=== PATIENT | female | born 1935 | race Caucasian/White ===

== ENCOUNTER 2018-12-23 10:51 | Inpatient (IN) ==
--- NOTE | 2018-12-23 12:19 | PROVIDER DOCUMENTATION ---
HPI-General Adult - General Chief Complaint: Fall Stated Complaint: FALL Time Seen by Provider: 12/23/18 11:35 Source: patient Allergies/Adverse Reactions: Patient Allergies Allergy/AdvReac Type Severity Reaction Status Date / Time Sulfa (Sulfonamide Allergy RASH Verified 12/08/18 16:41 Antibiotics) sulfamethoxazole Allergy RASH Verified 12/08/18 16:41 [From Bactrim] trimethoprim [From Bactrim] Allergy RASH Verified 12/08/18 16:41 muscle relaxers Allergy RASH Uncoded 12/08/18 16:41 Home Medications: Home Medication List Medication Instructions Recorded Confirmed Last Taken Type Amlodipine Besylate [Norvasc] 5 mg PO DAILY 10/02/17 12/08/18 Unknown History Lisinopril 20 mg PO DAILY 10/02/17 12/08/18 Unknown History Sertraline HCl 1 tab PO DAILY 12/08/18 12/08/18 Unknown History - History of Present Illness -Gen Adult Nature of Presenting Problems: 83yof presents to ED via EMS s/p being found laying in floor at home by her son & daughter. Patient states she fell and hit her head and could not get out of the floor, unsure why she fell. She has a history of a fall with brain bleed 1 month ago per family. Location of Pain/Injury: reports: head, pelvis (amalia hips, Rt > Left) Pain Radiation: reports: no radiation Quality of Pain: reports: aching Severity: reports: mild Onset/Duration: reports: gradual, just prior to arrival Timing: reports: still present Modifying Factors: improves with: movement Associated Symptoms: reports: weakness (generalized) Similar Symptoms Previously?: No Recently seen or treated by another doctor?: No Review of Systems - Adult - REVIEW OF SYSTEMS - ADULT Constitutional: reports: see HPI, other (generalized weakness) Eyes: reports: no symptoms reported Ears, Nose, Mouth & Throat: reports: no symptoms reported Cardiovascular: reports: no symptoms reported Respiratory: reports: no symptoms reported Gastrointestinal: reports: no symptoms reported Genitourinary: reports: no symptoms reported Musculoskeletal: reports: see HPI, joint pain (amalia hips) Integumentary: reports: no symptoms reported Neurological: reports: no symptoms reported Psychiatric: reports: no symptoms reported Endocrine: reports: no symptoms reported Hematologic/Lymphatic: reports: no symptoms reported Allergic/Immunologic: reports: no symptoms reported All Other Systems: Reviewed and Negative Past History - Adult - PAST MEDICAL HISTORY-ADULT Review of Records: reports: Old Records Reviewed, Nursing Assessment Review, Medications Reviewed Major Childhood Illnesses: reports: denies history Cardiovascular: reports: HTN, hyperlipidemia Respiratory: reports: COPD Gastrointestinal: reports: denies history Obstetrical/Gynecological: reports: denies history Genitourinary: reports: denies history Musculoskeletal: reports: denies history Neurological: reports: denies history Endocrine/Immune: reports: denies history Other Conditions: reports: denies history - PRIOR SURGERIES/PROCEDURES Surgical/Procedure History: reports: none - IMMUNIZATION STATUS Childhood Immunizations: See Nurse Assessment Flu Vaccine: See Nurse Assessment - FAMILY HISTORY Family History: reviewed, not pertinent - SOCIAL HISTORY Smoking: denies Living Situation: alone Physical Exam-General - PHYSICAL EXAM-ADULT Initial Vital Signs Reviewed: Yes - CONSTITUTIONAL General Appearance: appears well, alert, no apparent distress - EYES Eyes: PERRL/EOMI, pink conjunctivae - HEAD, EARS, NOSE, MOUTH & THROAT HENMT: normocephalic/atraumatic, normal ENT inspection, TMs normal, pharynx normal, other (Dry MM) - NECK Neck: non-tender, full range of motion, supple, normal inspection - RESPIRATORY Respiratory: chest non-tender, lungs clear, normal breath sounds, no pleuratic chest pain, no respiratory distress, no accessory muscle use - CARDIOVASCULAR Cardiovascular: normal peripheral pulses, regular rate, rhythm - GASTROINTESTINAL (ABDOMEN) Abdominal Exam: normal bowel sounds, non tender, soft, no organomegaly - LYMPHATIC Lymphatic: no adenopathy - MUSCULOSKELETAL Back Exam: normal inspection, no CVA tenderness Extremity: normal range of motion, normal inspection, no pedal edema, normal capillary refill, tenderness (Rt lateral hip (mild), FAROM), other (pt states cannot walk, too weak; gait not tested) - SKIN Integumentary: normal color, warm/dry, other (poor skin turgor) - NEUROLOGIC Neurologic: grossly normal, no motor/sensory deficits - PSYCHIATRIC Psych/Mental Status: normal mood/affect, normal thought content, normal thought process, oriented x 3 Progress - PLAN OF CARE/RESULTS Progress/Plan/Lab Results: Vital Signs - 8 hr 12/23/18 11:36 Temperature 99.8 F H Pulse Rate 105 H Respiratory Rate 18 Blood Pressure 131/94 O2 Sat by Pulse Oximetry 95 Orders Category Date Time Status IV [Saline Loc] NOW Care 12/23/18 12:16 Ordered CHEST-PORTABLE [RAD] Stat Exams 12/23/18 12:[address] HEAD/C-SPINE W/O CONTRAST [CT] Stat Exams 12/23/18 12:14 Ordered CBC WITH DIFF [HEME] Stat Lab 12/23/18 12:12 Uncollected CK PROFILE [SP CHEM] Stat Lab 12/23/18 12:12 Uncollected COMPREHENSIVE METABOLIC PANEL [CHEM] Stat Lab 12/23/18 12:12 Uncollected PT [PROTIME WITH INR] [COAG] Stat Lab 12/23/18 12:14 Uncollected PTT [COAG] Stat Lab 12/23/18 12:14 Uncollected TROPONIN T Stat Lab 12/23/18 12:12 Uncollected URINALYSIS W/POSS RFLX CULT [URINALYSIS] Stat Lab 12/23/18 12:12 Uncollected EKG [EKG] Stat Ther 12/23/18 12:12 Ordered Result Diagrams: 12/23/18 14:00 12/23/18 14:00 - REASSESSMENT Reassessment #1 Time Reassessed: 14:33 (Reviewed labs, awaiting UA results.) Reassessment #2 Time Reassessed: 16:25 (Discussed pt with Elle, Hospitalist [facility], she recommends admit inpatient to Dr. You.) Reassessment #3 Time Reassessed: 16:25 (Discussed pt with Dr. Long, he agrees with plan for admit.) - XRAY 1 XRAY Study: Chest Impression: See EMR Report ( EXAM: CHEST-PORTABLE HISTORY: weakness TECHNIQUE: Single view COMPARISON: None. FINDINGS: Poor inspiratory effort. The heart is borderline mildly prominent. Mild increased interstitial markings throughout both lungs. No consolidation. No pleural effusions identified. IMPRESSION: Increased interstitial markings believed to be mild pulmonary edema Electronically signed by Samy Maguire 12/23/2018 1:15 PM 12/23/18 1315 Interpreting Physician: Samy Maguire MD Dictated Date/Time: 12/23/18 1317 cc: Ivana Barahona; José Luis Martinez MD) 2 XRAY: Right XRAY Study: Hip Impression: See EMR Report (EXAM: XRAY PELVIS W/HIP 2-3VW RT 12/23/2018 HISTO RY: right hip pain TECHNIQUE: AP pelvis and right hip three views COMMENT: There is generalized osteopenia. The hip joint spaces well-maintained. There is some sclerosis around the symphysis pubis. No evidence of acute fracture or dislocation is present. IMPRESSION: No acute bony abnormality. Osteopenia. Electronically signed by Zenon Galarza 12/23/2018 3:43 PM 12/23/18 1543 Interpreting Physician: Zenon Galarza MD Dictated Date/Time: 12/23/18 1542 cc: Ivana Barahona; José Luis Martinez MD) - CT/MRI 1 CT Study: Cervical Spine, Head Impression: See EMR Report (EXAM: CT HEAD/C-SPINE W/O CONTRAST 12/23/2018 HISTORY: fall, head trauma TECHNIQUE: This exam was performed using automated exposure control, adjustment of mA or kV according to patient size, and/or use of iterative reconstruction technique. COMMENT: There are calcifications in the right vertebral and basilar artery as well as both internal carotid arteries. There are patchy lucencies in the periventricular white matter of both hemispheres. The subdural hematoma which was present on the right on 12/08/2018 has decreased in density, but remains essentially unchanged in extent, measuring up to 7 mm in thickness. Minimal shift of midline structures to the left is present. There is cerebellar atrophy as there was previously. The calvarium is intact. The visualized paranasal sinuses are clear. Cervical spine: There is posterior osteophyte formation at C5-6 and C6-7 as there was on the previous study of 11/29/2018. There is no evidence of fracture, subluxation, or prevertebral soft tissue swelling. The facets appear to be aligned. 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 No evidence of acute disease in the cervical spine. Electronically signed by Zenon Galarza 12/23/2018 1:25 PM 12/23/18 1325 Interpreting Physician: Zenon Galarza MD Dictated Date/Time: 12/23/18 1321 cc: Ivana Barahona; José Luis Martinez MD) Departure - Departure Date of Disposition Decision: 12/23/18 Time of Disposition Decision: 16:25 DIAGNOSIS: Subdural hematoma, chronic, Weakness, Hyponatremia Disposition: ADMITTED INPATIENT 09 Certified Medical Emergency: Emergent Condition: Stable Referrals and Follow-Ups: José Luis Martinez MD [Primary Care Provider] - - Critical Care Note This patient required my direct & personal management of CC.: No Attestation - Physician/ CATARINA Attestation Patient care was provided by Advanced Practice Provider:: Yes Advanced Practice Provider:: Ivana Barahona Advanced Practice Provider documentation review:: The Mid-level provider documentation, treatment plan and medical decision making was reviewed by the physician who agrees with all treatment and medical decision making by the MLP. The physician spent face to face time with patient:: No Advanced Practice Provider documentation review:: Supervising physician onsite and consulted in the evaluation and care of this patient. The physician did not have a face to face encounter with the patient.
--- NOTE | 2018-12-23 13:17 | Diag Imaging Result Doc PS360 ---
EXAM: CHEST-PORTABLE HISTORY: weakness TECHNIQUE: Single view COMPARISON: None. FINDINGS: Poor inspiratory effort. The heart is borderline mildly prominent. Mild increased interstitial markings throughout both lungs. No consolidation. No pleural effusions identified. IMPRESSION: Increased interstitial markings believed to be mild pulmonary edema Electronically signed by Samy Maguire 12/23/2018 1:15 PM
--- NOTE | 2018-12-23 13:28 | Diag Imaging Result Doc PS360 ---
EXAM: CT HEAD/C-SPINE W/O CONTRAST 12/23/2018 HISTORY: fall, head trauma TECHNIQUE: This exam was performed using automated exposure control, adjustment of mA or kV according to patient size, and/or use of iterative reconstruction technique. COMMENT: There are calcifications in the right vertebral and basilar artery as well as both internal carotid arteries. There are patchy lucencies in the periventricular white matter of both hemispheres. The subdural hematoma which was present on the right on 12/08/2018 has decreased in density, but remains essentially unchanged in extent, measuring up to 7 mm in thickness. Minimal shift of midline structures to the left is present. There is cerebellar atrophy as there was previously. The calvarium is intact. The visualized paranasal sinuses are clear. Cervical spine: There is posterior osteophyte formation at C5-6 and C6-7 as there was on the previous study of 11/29/2018. There is no evidence of fracture, subluxation, or prevertebral soft tissue swelling. The facets appear to be aligned. 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 No evidence of acute disease in the cervical spine. Electronically signed by Zenon Galarza 12/23/2018 1:25 PM
[2018-12-23 14:17] LABS: BASO# 0.02 X1000 (0.0-0.2); BASO% 0.3 % (0.0-0.8); HEMATOCRIT 43.9 % (37.0-47.0); HEMOGLOBIN 13.9 g/dL (12.0-16.0); IMM GRAN# 0.02 X1000 (0.0-0.04); IMM GRAN% 0.3 % (0.0-0.5); LYMPH% 13.2 % (20.5-51.1); MCH 28.7 PG (27-31); MCHC 31.7 g/dL (33-37); MCV 90.5 FL (81-99); MONO# 0.21 X1000 (0.11-0.59); MONO% 2.8 % (1.7-9.3); MPV 10.7 FL (7.4-10.4); NEUT% 83.4 % (42.2-75.2); PLT 350 X1000 (130-400); RBC 4.85 XMIL (4.2-5.4); RDW 14.5 % (11.5-14.5); WBC 7.55 X1000 (4.8-10.8)
[2018-12-23 14:24] LABS: INR 1.06; PROTIME 13.9 Seconds (11.0-16.0)
[2018-12-23 14:25] LABS: PTT 27.6 Seconds (22.3-41.8)
[2018-12-23 14:29] LABS: AGAP 14; ALB/GLOB RATIO 1.2; ALBUMIN 4.4 g/dL (3.5-5.0); ALKALINE PHOSPHATASE 21 U/L (32-104); BUN 15 mg/dL (8-22); CALCIUM 9.7 mg/dL (8.8-10.2); CHLORIDE 93 mmol/L (98-107); CK PROFILE 74 U/L (24-173); COSMO 266; CREATININE 0.7 mg/dL (0.5-0.9); ESTIMATED GFR > 60; GLUCOSE 136 mg/dL (70-104); GOT 50 U/L (10-30); GPT 9 U/L (10-36); POTASSIUM 5.3 mmol/L (3.5-5.1); SODIUM 131 mmol/L (136-145); TCO2 24 mmol/L (25-35); TOTAL BILIRUBIN 0.43 mg/dL (0.20-1.00)
[2018-12-23] MEDS ORDERED: TYLENOL PO ONE (14:45)
--- NOTE | 2018-12-23 14:55 | EKG Report ---
Test Performed on : 12/23/2018 2:51:14 PM Test Reason : fall, syncope Blood Pressure : / mmHG Vent. Rate : 116 BPM Atrial Rate : 116 BPM P-R Int : 198 ms QRS Dur : 072 ms QT Int : 290 ms P-R-T Axes : 038 -06 034 degrees QTc Int : 403 ms Sinus tachycardia. Otherwise normal ECG When compared with ECG of 29-NOV-2018 20:43, (Unconfirmed) MI interval has decreased Vent. rate has increased BY 54 BPM Unconfirmed Result
[2018-12-23 15:29] LABS: URINE SOURCE CATH
[2018-12-23 15:39] LABS: BILIRUBIN URINE NEGATIVE (NEGATIVE); BLOOD URINE NEGATIVE (NEGATIVE); COLOR YELLOW; GLUCOSE URINE NEGATIVE (NEGATIVE); KETONE URINE NEGATIVE (NEGATIVE); LEUKOCYTES URINE TRACE (NEGATIVE); NITRITE URINE NEGATIVE (NEGATIVE); PROTEIN URINE NEGATIVE (NEGATIVE); SP GRAVITY URINE 1.022; TURBIDITY URINE CLEAR (CLEAR); UROBILINOGEN URINE NORMAL (NORMAL)
[2018-12-23 15:41] LABS: UR EPITHELIAL CELLS <10 /HPF (<10); URINE BACTERIA NEGATIVE /HPF; URINE RBC <10 /HPF (<10); URINE WBC <10 /HPF (<10)
--- NOTE | 2018-12-23 15:45 | Diag Imaging Result Doc PS360 ---
EXAM: XRAY PELVIS W/HIP 2-3VW RT 12/23/2018 HISTORY: right hip pain TECHNIQUE: AP pelvis and right hip three views COMMENT: There is generalized osteopenia. The hip joint spaces well-maintained. There is some sclerosis around the symphysis pubis. No evidence of acute fracture or dislocation is present. IMPRESSION: No acute bony abnormality. Osteopenia. Electronically signed by Zenon Galarza 12/23/2018 3:43 PM
[2018-12-23] MEDS ORDERED: ZOFRAN IV PRN (18:48)
[2018-12-23] MEDS ORDERED: ROCEPHIN 1 GM in NS 50 ML IV SCH (18:48)
[2018-12-23] MEDS ORDERED: VANCOMYCIN IV PER PHARMACY MISC SCH (18:48)
--- NOTE | 2018-12-23 19:55 | Diag Imaging Result Doc PS360 ---
EXAM: CT THORAX/ABD/PELVIS W/O CON 12/23/2018 HISTORY: sepsis without clear source TECHNIQUE: This exam was performed using automated exposure control, adjustment of mA or kV according to patient size, and/or use of iterative reconstruction technique. COMMENT: Thorax: There are no previous studies. There is extensive coronary atherosclerosis. There are no abnormal fluid collections. There is a hiatal hernia. There is some peripheral interstitial opacity generally and ill-defined opacification of the posterior left upper lobe. There are calcified precarinal nodes. There are calcified nodes in the right hilum. ABDOMEN/pelvis: There are numerous granulomata in the spleen and liver. There is no evidence of cholelithiasis. There are cysts in the liver including a large anterior right lobe cyst measuring 4.8 cm in AP dimension. There is diverticulosis coli. There are apparent bilateral parapelvic cysts. There is no evidence of nephrolithiasis. The pancreas is grossly normal in the absence of contrast. There is some stool in the colon. The small bowel is not distended. There is no evidence of significant adenopathy or abdominal aortic aneurysm. There is a fat-containing umbilical hernia. There is no evidence of appendicitis. There is some diverticulosis in the sigmoid colon without evidence of acute diverticulitis. There is a Guerra catheter in the urinary bladder. There is stool in the rectum. There is no evidence of acute bony abnormality. IMPRESSION: 1. Interstitial edema versus fibrosis. The possibility of mild left upper lobe bronchopneumonia cannot be excluded. 2. Diverticulosis coli. Mild constipation. Electronically signed by Zenon Galarza 12/23/2018 7:52 PM
[2018-12-23] MEDS ORDERED: VANCOMYCIN 1.4 GM in NS 250 ML IV SCH (20:00)
--- NOTE | 2018-12-23 20:30 | HISTORY AND PHYSICAL ---
CHIEF COMPLAINT: Fall, generalized weakness. HISTORY OF PRESENT ILLNESS: Patient is an 83-year-old female with history of fall and subsequent subdural hematoma almost a month ago. Was initially hospitalized at [facility], subsequently went home. Has had some issues with slow speech and balance issues since then. Has had a couple issues of worsened speech and possibly some facial droop that have resolved spontaneously. Has not had an MRI since her initial fall with subdural. Has had multiple CT's showing stability of the hematoma. This morning, again had a fall. She says that her feet just went out from under her. She did not strike her head. She denies loss of consciousness. She attempted to pull herself back up using the bed, but was unable to do so because of weakness. She was later found by her family and brought in for further evaluation. She endorses a chronic largely nonproductive cough for 6+ weeks, but denies any dyspnea. Denies fever or chills at home. Has had a couple issues of nausea with some vomiting, but is not nauseous currently. States that she has been eating and drinking fairly well prior to this day. Denies diarrhea. Denies chest pain. She denies lateralizing weakness and family states that both legs seemed equally weak when they found her, but does have a little left-sided weakness on exam as below. Denies abdominal pain. No new rashes or lesions. Previous right groin infection healed well, and she has had no further issues with it. Denies sick contacts. Patient has had vertigo in the past, but denies anything feels the same. With initial evaluation in the ED, CT is again stable and no obvious source of infection is found, but the patient is tachycardic and afebrile, so she is admitted for further evaluation and treatment. REVIEW OF SYSTEMS: A 12 point review of systems negative except as per HPI. ALLERGIES: Sulfa drugs and muscle relaxers. PAST MEDICAL HISTORY: 1. Hypertension. 2. Questionable history of COPD. 3. Vertigo. PAST SURGICAL HISTORY: 1. Right groin debridement. 2. Bilateral hammertoe repairs. SOCIAL HISTORY: Patient denies tobacco, alcohol, or illicit drug use. FAMILY HISTORY: Father with lymphoma. Mother with congestive heart failure. LABS: WBC 7.5, hemoglobin 13.9, hematocrit 43.9, platelets 350,000. INR within normal limits. Sodium 131, potassium 5.3, bicarbonate 24, gap 14, BUN 15, creatinine 0.7, glucose 136, bilirubin 0.43, AST 50, ALT 9, alkaline phosphatase 21. Troponin negative. CK 74. Urinalysis unremarkable. IMAGING: Chest x-ray with possible mild pulmonary edema, but otherwise no acute process. CT head and C-spine with chronic subdural hematoma slightly less dense, but essentially unchanged. No new acute process. Hip and pelvis x-ray unremarkable aside from some chronic osteopenia. VITAL SIGNS: T-max 102.4 degrees, pulse 115, respirations 20, blood pressure 184/84, O2 saturation 97% on room air. PHYSICAL EXAMINATION: GENERAL: No acute distress. VITAL SIGNS: As above. HEENT: Normocephalic, atraumatic. Slightly dry mucous membranes. No cervical adenopathy. CARDIOVASCULAR: Slightly tachycardic, but regular. No murmurs noted. PULMONARY: Clear to auscultation bilaterally. ABDOMEN: Soft, nontender, nondistended. Bowel sounds positive. EXTREMITIES: Peripheral pulses intact. No clubbing, cyanosis, or edema. NEUROLOGIC: Pupils equal, round, reactive to light. No nystagmus noted. Good eye movement to all quadrants. Speech is slow, but clear and coherent. Fairly significant left upper extremity weakness with all movements, but lower extremities seem pretty symmetric, possibly very subtle left lower extremity weakness. PSYCHIATRIC: Normal mood, slightly flat affect. Oriented x3 currently. ASSESSMENT AND PLAN: 1. Fall and weakness. May be due to a viral illness and after effects of previous subdural hematoma, but not previously noted left upper extremity weakness raises concern for acute stroke. The patient would not be a candidate for tissue plasminogen activator due to recent brain bleed. Reluctant to even put her on aspirin given large subdural within the last month still present on CT. We will get an MRI and gently hydrate. Hold blood pressure medications for now. If stroke is found, then likely will need neurologic consult to ask whether or not she should be put on aspirin. We will go ahead and place patient on a statin. Will get Physical Therapy to see her in the morning. I suspect she will end up needing rehab placement. 2. Possible sepsis. Patient with fever, tachycardia, no white count, no obvious source infection. Chest x-ray is clear. Neck is supple. Urine is pristine. We will place empirically on vancomycin and Rocephin for now, and obtain CT chest, abdomen, and pelvis to look for source. If all that is negative, then maybe a viral illness and may be able to de- escalate antibiotics. Will go ahead and flu swab patient as well. 3. Hypertension. Permissive hypertension for now. Will likely restart home amlodipine later. 4. Hyperlipidemia. Starting statin as above. Check lipid panel. Based on results of lipid panel, may or may not restart home fenofibrate. 5. Reported history of chronic obstructive pulmonary disease. Patient supposedly with history of chronic obstructive pulmonary disease, but never smoked. Does not really describe anything that sounds like chronic obstructive pulmonary disease exacerbation in the past. Monitor for now. 6. History of vertigo. No clear vertigo symptoms. No nystagmus now, but will monitor and consider meclizine if that changes. 7. Subdural hematoma, subacute and stable, unchanged from previous over the last month, but monitor for any neurologic changes.
[2018-12-23] MEDS: LIPITOR PO SCH (22:42)
[2018-12-23] MEDS: NS 1,000 ML IV SCH (22:42)
[2018-12-24 06:58] LABS: BASO# 0.02 X1000 (0.0-0.2); BASO% 0.4 % (0.0-0.8); EOS# 0.05 X1000 (0.0-0.7); EOS% 0.9 % (0.0-10.0); HEMATOCRIT 40.7 % (37.0-47.0); HEMOGLOBIN 12.7 g/dL (12.0-16.0); LYMPH# 1.01 X1000 (1.2-3.4); LYMPH% 18.9 % (20.5-51.1); MCH 28.5 PG (27-31); MCHC 31.2 g/dL (33-37); MCV 91.5 FL (81-99); MONO% 11.2 % (1.7-9.3); MPV 10.3 FL (7.4-10.4); NEUT# 3.67 X1000 (1.4-6.5); NEUT% 68.6 % (42.2-75.2); PLT 267 X1000 (130-400); RBC 4.45 XMIL (4.2-5.4); RDW 14.4 % (11.5-14.5); WBC 5.35 X1000 (4.8-10.8)
[2018-12-24 07:26] LABS: HEMOGLOBIN A1C 5.3 % (4.8-6.0)
--- NOTE | 2018-12-24 07:31 | Diag Imaging Result Doc PS360 ---
EXAM: CHEST-PORTABLE INDICATION: cough TECHNIQUE: One view COMPARISON: 12/23/2018 FINDINGS: The increased interstitial markings bilaterally are approximately stable likely representing mild edema. No new consolidation is identified. Cardiac silhouette is stable. IMPRESSION: Essentially stable chest. Electronically signed by Baal King 12/24/2018 7:29 AM
[2018-12-24] MEDS: NS 1,000 ML IV SCH ×4 (07:44→21:38)
[2018-12-24 08:12] LABS: AGAP 15; BUN 22 mg/dL (8-22); CALCIUM 9.1 mg/dL (8.8-10.2); CHLORIDE 98 mmol/L (98-107); CHOLESTEROL 207 mg/dL (0-200); COSMO 272; CREATININE 0.7 mg/dL (0.5-0.9); ESTIMATED GFR > 60; GLUCOSE 109 mg/dL (70-104); HDL 32 mg/dL (45-65); LDL 145 mg/dL; SODIUM 134 mmol/L (136-145); TCO2 21 mmol/L (25-35); TRIGLYCERIDES 148 mg/dL (35-135); VLDL 30 mg/dL
[2018-12-24] MEDS: ZOLOFT PO SCH (09:59)
--- NOTE | 2018-12-24 11:39 | Diag Imaging Result Doc PS360 ---
MRI BRAIN W/O CONTRAST - 12/23/2018 INDICATION: left upper extremity weakness, fall COMPARISON: Head CT 12/23/2018 FINDINGS: There is a small grossly stable right lateral extra-axial fluid collection. This is hyperintense on the T1 and T2-weighted images. This is compatible with a subacute to chronic subdural hematoma. This measures about 8 mm in maximal thickness, and about 6 cm in length. There is advanced cerebral atrophy. There is advanced periventricular white matter chronic microvascular ischemia. No area of restricted diffusion. 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 No herniation or midline shift. IMPRESSION: 1. Stable subacute to chronic right subdural hematoma. 2. Other chronic changes are stable from prior. Electronically signed by Janes Tilley 12/24/2018 11:36 AM
[2018-12-24] MEDS: MAXIPIME 1 GM in NS 50 ML IV SCH (16:32)
--- NOTE | 2018-12-24 18:49 | CONSULTATION ---
DATE OF CONSULTATION: 12/24/2018 REASON FOR CONSULT: Altered mental status. HISTORY OF PRESENT ILLNESS: This is an 83-year-old right-handed female with recent fall and traumatic right-sided subdural hematoma about 1 month ago, managed nonsurgically at [facility]. She is admitted this time after being found on the floor at home by her family. History is from the patient and chart review. Apparently since the subdural hematoma she has had difficulty with her balance and some slurred speech, sometimes drooling. She has had a couple of falls. She has been generally weak. She was seen in the emergency department in early December with stable imaging and discharged home with followup with her primary care physician. She returns again this time after being found down and unable to get up. She says she just lost her balance and fell. She denies loss of consciousness. There have not been reports of witnessed seizure activity. The family felt that she was generally weak. 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 MRI of the brain to rule out stroke showed no acute findings. It redemonstrated stable subacute to chronic right subdural hematoma. 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 PAST MEDICAL HISTORY: Hypertension, vertigo, apparent traumatic right subdural hematoma after a fall 11/29/2018, COPD. FAMILY HISTORY: Positive for lymphoma and heart failure. No seizures or stroke. SOCIAL HISTORY: No tobacco, alcohol or illicit drugs. She lives alone, uses a walker. ALLERGIES: Listed to sulfa, muscle relaxers. Reviewed in the chart. CURRENT MEDICATIONS: Reviewed in the chart. She has been started on cefepime today. REVIEW OF SYSTEMS: Balance of 12 conducted and is otherwise negative except that detailed in the HPI. PHYSICAL EXAMINATION: Vital signs: T-max was 102.4 degrees yesterday, afebrile today. Blood pressure 158/69, pulse 90, respirations 17, 97% on room air. Ms. Aguilar is supine in bed, awake, alert and attentive. There is some spontaneity. She is slow to answer questions and does not often complete her thought process. She follows simple commands consistently. No language disturbance on brief bedside testing. No significant dysarthria. She is oriented to location, month, self and situation, but she does say the date is 1927. She knows the President. Pupils are equal, round and reactive to bright light. Gaze is conjugate and forward. Ocular movements are full, without nystagmus. Visual rabago intact to direct confrontational testing. Face appears symmetric with equal activation. Facial sensation reported intact. She can hear. Tongue is midline. Palate elevates symmetrically. Shoulder shrug is full. No definite drift. Tone is equal in the limbs. Power is preserved in the limbs, with the following exceptions: Power is mildly reduced in a general fashion over the limbs, though there may be slight asymmetry with regards to left triceps, 4/5 strength. She reports symmetric sensation to light touch and pinprick in the limbs. There is no resting tremor. There is an action tremor bilaterally involving the upper extremities. Rapid alternating movements slightly slowed on the left compared to the right. Reflexes are 1+ at the knees and ankles as well as wrists. Plantar response equivocal, with excessive withdrawal. DIAGNOSTIC DATA: Head CT: Chronic subdural hematoma on the right which has decreased in density but essentially unchanged in extent, measuring up to 7 mm in thickness by report. No evidence of acute disease in the cervical spine. MRI of the brain: No evidence of acute ischemic stroke. LABORATORY DATA: Labs reviewed in the chart. ASSESSMENT AND PLAN: 1. Recent traumatic subdural hematoma without evidence of new hemorrhage. No evidence of acute ischemic stroke. Some of the findings may be related to the old subdural. I will go ahead and order a routine EEG to evaluate for increased propensity to seizure. I see no current indication to initiate antiplatelet therapy. I would recommend. Physical Therapy, Occupational Therapy and Speech Therapy evaluations. 2. Generalized weakness, which may be multifactorial in the setting of deconditioning and pneumonia in this elderly patient who is recovering from recent subdural hematoma. Thank you for this consultation. cc: Dana Jorge MD
[2018-12-24] MEDS: LIPITOR PO SCH (21:36)
[2018-12-25] MEDS: NS 1,000 ML IV SCH ×4 (00:05→16:01)
[2018-12-25] MEDS: MAXIPIME 1 GM in NS 50 ML IV SCH ×2 (03:48→16:01)
--- NOTE | 2018-12-25 05:21 | PROGRESS NOTE ---
DATE: 12/24/2018 SUBJECTIVE: The patient is pleasantly confused. No major issues. OBJECTIVE: Blood pressure 158/69, heart rate of 90, respiratory rate 17, temperature 99.1 degrees, and 97% on room air.Cardiovascular: Regular rate and rhythm. Pulmonary: Bilateral breath sounds. Clear to auscultation. GI: Soft, nontender, and nondistended. Bowel sounds are positive. LABORATORY DATA: White count 5, hemoglobin and hematocrit 12 and 40, and platelets 267,000. Sodium 134. PROBLEM LIST: 1. Encephalopathy unclear reason for fall and weakness. Apparently, since her subdural hematoma, she has had just kind of progressive weakness and progressive dysfunction. Yet all of her imaging is really unremarkable. No acute stroke. Hematoma has not further expanded. There is no major swelling or shift. I will go ahead and get a neurology consult because I am not quite sure what is going on from that standpoint. At this point, patient is too weak to be able to ambulate effectively on her own. 2. Bronchopneumonia and sepsis. We will continue empiric antibiotics and follow. 3. Chronic obstructive pulmonary disease is stable clearly. 4. Subacute subdural hematoma. Aware. She is not on any anti-platelet medications. We will continue to monitor closely. cc: Vasiliy Cotton MD
[2018-12-25 07:12] LABS: BASO# 0.03 X1000 (0.0-0.2); BASO% 0.4 % (0.0-0.8); EOS# 0.03 X1000 (0.0-0.7); EOS% 0.4 % (0.0-10.0); HEMATOCRIT 36.5 % (37.0-47.0); HEMOGLOBIN 11.6 g/dL (12.0-16.0); IMM GRAN# 0.02 X1000 (0.0-0.04); IMM GRAN% 0.3 % (0.0-0.5); LYMPH# 1.39 X1000 (1.2-3.4); LYMPH% 17.5 % (20.5-51.1); MCH 29.3 PG (27-31); MCHC 31.8 g/dL (33-37); MCV 92.2 FL (81-99); MONO# 0.66 X1000 (0.11-0.59); MONO% 8.3 % (1.7-9.3); MPV 10.3 FL (7.4-10.4); NEUT# 5.82 X1000 (1.4-6.5); NEUT% 73.1 % (42.2-75.2); PLT 239 X1000 (130-400); RBC 3.96 XMIL (4.2-5.4); RDW 14.2 % (11.5-14.5); WBC 7.95 X1000 (4.8-10.8)
[2018-12-25 07:28] LABS: AGAP 16; BUN 12 mg/dL (8-22); CALCIUM 7.9 mg/dL (8.8-10.2); CHLORIDE 98 mmol/L (98-107); COSMO 264; CREATININE 0.6 mg/dL (0.5-0.9); ESTIMATED GFR > 60; GLUCOSE 96 mg/dL (70-104); POTASSIUM 3.8 mmol/L (3.5-5.1); SODIUM 132 mmol/L (136-145); TCO2 18 mmol/L (25-35)
[2018-12-25] MEDS: LOFIBRA PO SCH (08:47)
[2018-12-25] MEDS: NORVASC PO SCH (08:47)
[2018-12-25] MEDS: ZOLOFT PO SCH (08:47)
[2018-12-25] MEDS: PRINIVIL PO SCH (08:47)
[2018-12-25] MEDS: VICON-C PO SCH (08:47)
--- NOTE | 2018-12-25 14:22 | EEG REPORT ---
DATE: 12/24/2018 REFERRING PHYSICIAN: Dana Jorge MD. WHEEL CUTTER: Ron Christy. BACKGROUND INFORMATION TECHNIQUE: This is a digitally recorded routine EEG with video. HISTORY: An 83-year-old female with a recent subdural hematoma one month ago. EEG is ordered to detect evidence of seizures. Medications include Zoloft, Zofran. EEG FINDINGS: A posterior dominant alpha rhythm is not seen. The background at maximal alertness consists primarily of mixed alpha and beta range frequencies with some theta intermixed. No definite persistent focal slowing. No epileptiform discharges. No seizures. Hyperventilation is not performed. Photic stimulation does not alter the record. The patient is drowsy often but stage II sleep is not seen. EKG demonstrates regular RR intervals with PVCs. IMPRESSION AND CLINICAL CORRELATION: Borderline abnormal routine EEG due to very mild diffuse slowing suggestive of a mild nonspecific encephalopathy versus drowsiness. No epileptiform discharges or seizures seen on the current study. This does not rule out an underlying seizure disorder. Clinical correlation is recommended. cc: Dana Jorge MD
[2018-12-25] MEDS ORDERED: NS 1,000 ML IV SCH (18:12)
--- NOTE | 2018-12-25 19:06 | PROGRESS NOTE ---
DATE: 12/25/2018 SUBJECTIVE: The patient has no major complaints. OBJECTIVE: Blood pressure 132/68, heart rate of 81, respiratory rate of 17, temperature 98.9 degrees, 100% saturation on 2 L.Cardiovascular: Regular rate and rhythm. Pulmonary: Bilateral breath sounds, clear to auscultation. GI was soft, nontender, nondistended. Bowel sounds are positive. LABORATORY DATA: White count 7, hemoglobin and hematocrit 11 and 36, platelets 239,000. Basic was normal. ASSESSMENT AND PLAN: Problem list: 1. Encephalopathy, probably due to her subdural hematoma, maybe some underlying dementia. I appreciate Dr. Jorge's input. It does not clearly look like she has stroke or seizure. We will continue to follow. 2. Bronchopneumonia with some early sepsis that has resolved. Her CT scan showed left upper lobe bronchopneumonia, so we are treating as such. She is on cefepime and it is day 2. 3. Disposition: I think if she stabilizes she should be ready for discharge in a day or so. I think we are looking for rehab options for her when she leaves because of her generalized weakness, and disposition will be inpatient rehab. cc: Vasiliy Cotton MD
[2018-12-25] MEDS: LIPITOR PO SCH (21:38)
[2018-12-26] MEDS: MAXIPIME 1 GM in NS 50 ML IV SCH ×2 (03:56→15:09)
[2018-12-26 07:46] LABS: BASO# 0.01 X1000 (0.0-0.2); BASO% 0.1 % (0.0-0.8); EOS# 0.12 X1000 (0.0-0.7); EOS% 1.7 % (0.0-10.0); HEMATOCRIT 35.9 % (37.0-47.0); HEMOGLOBIN 11.2 g/dL (12.0-16.0); LYMPH# 0.91 X1000 (1.2-3.4); LYMPH% 12.6 % (20.5-51.1); MCH 28.3 PG (27-31); MCHC 31.2 g/dL (33-37); MCV 90.7 FL (81-99); MONO# 0.44 X1000 (0.11-0.59); MONO% 6.1 % (1.7-9.3); MPV 10.8 FL (7.4-10.4); NEUT# 5.72 X1000 (1.4-6.5); NEUT% 79.5 % (42.2-75.2); PLT 249 X1000 (130-400); RBC 3.96 XMIL (4.2-5.4)
[2018-12-26 08:40] LABS: AGAP 12; BUN 11 mg/dL (8-22); CALCIUM 8.6 mg/dL (8.8-10.2); CHLORIDE 100 mmol/L (98-107); COSMO 261; CREATININE 0.5 mg/dL (0.5-0.9); ESTIMATED GFR > 60; GLUCOSE 85 mg/dL (70-104); POTASSIUM 3.7 mmol/L (3.5-5.1); SODIUM 131 mmol/L (136-145); TCO2 19 mmol/L (25-35)
[2018-12-26] MEDS: NORVASC PO SCH (10:07)
[2018-12-26] MEDS: LOFIBRA PO SCH (10:08)
[2018-12-26] MEDS: PRINIVIL PO SCH (10:08)
[2018-12-26] MEDS: ZOLOFT PO SCH (10:08)
[2018-12-26] MEDS: VICON-C PO SCH (10:08)
[2018-12-26] MEDS: TYLENOL PO PRN (16:50)
--- NOTE | 2018-12-26 20:05 | PROGRESS NOTE ---
DATE: 12/26/2018 SUBJECTIVE: The patient has no major complaints. She is about at baseline. OBJECTIVE: Blood pressure 135/60, heart rate 81, respiratory rate 18, temperature 97.9 degrees ,100% on room air.Cardiovascular: Regular rate and rhythm. Pulmonary: Bilateral breath sounds, clear to auscultation. GI: Soft, nontender, nondistended. Bowel sounds are positive. LABORATORY DATA: White count 7, hemoglobin and hematocrit 11 and 35, platelets 249,000. Sodium 131. PROBLEM LIST: 1. Encephalopathy due to subdural hematoma. She seems to be doing okay. No major complaints. No seizures. 2. Bronchopneumonia, left upper lobe. She is on cefepime, day 2, most likely can transition her back soon. 3. Hypertension, well controlled on current medications. 4. Hyponatremia, not sure if it is related to her subdural. We will check urine osmolarity and urine sodium and monitor for SIADH, that may also be contributing to her weakness, but we are awaiting rehab input soon. DISPOSITION: I anticipate discharge soon. cc: Vasiliy Cotton MD
[2018-12-26] MEDS: LIPITOR PO SCH (20:52)
[2018-12-27] MEDS: MAXIPIME 1 GM in NS 50 ML IV SCH ×2 (02:56→15:32)
[2018-12-27 08:03] LABS: AGAP 8; BUN 8 mg/dL (8-22); CALCIUM 8.5 mg/dL (8.8-10.2); CHLORIDE 97 mmol/L (98-107); COSMO 259; CREATININE 0.5 mg/dL (0.5-0.9); ESTIMATED GFR > 60; GLUCOSE 93 mg/dL (70-104); POTASSIUM 3.6 mmol/L (3.5-5.1); SODIUM 130 mmol/L (136-145); TCO2 25 mmol/L (25-35)
[2018-12-27] MEDS: VICON-C PO SCH (08:21)
[2018-12-27] MEDS: ZOLOFT PO SCH (08:21)
[2018-12-27] MEDS: NORVASC PO SCH (08:21)
[2018-12-27] MEDS: PRINIVIL PO SCH (08:21)
[2018-12-27] MEDS: LOFIBRA PO SCH (08:21)
[2018-12-27] MEDS ORDERED: SAMSCA PO ONE (17:12)
--- NOTE | 2018-12-27 17:50 | PROGRESS NOTE ---
DATE: 12/27/2018 SUBJECTIVE: Patient has no major complaints. OBJECTIVE: Blood pressure 139/77, heart rate of 77, respiratory rate 18, temperature 98.7 degrees, 99% on room air.Cardiovascular: Regular rate and rhythm. Pulmonary: Bilateral breath sounds clear to auscultation. GI: Soft, nontender, nondistended. Bowel sounds are positive. LABS: Sodium is at 130. Rest of electrolytes are stable. PROBLEM LIST: 1. Encephalopathy, subdural hematoma. She is stable. No seizures. Mental status seems to be doing okay. 2. Left upper lobe bronchopneumonia. She is on cefepime day 3. We will continue to monitor. Continue pulmonary toilet. 3. Hyponatremia is stable. I do not think too much else, her urine electrolytes suggest the possibility of syndrome of inappropriate antidiuretic hormone secretion which may be related to her. I am going to give her some Samsca and see how she does, that may help with her confusion and things of that nature. DISPOSITION: Looking at rehab hopefully on Sunday. cc: Vasiliy Cotton MD
[2018-12-27] MEDS: LIPITOR PO SCH (21:15)
[2018-12-28] MEDS: MAXIPIME 1 GM in NS 50 ML IV SCH ×2 (04:49→16:54)
[2018-12-28 08:04] LABS: AGAP 13; BUN 7 mg/dL (8-22); CALCIUM 8.7 mg/dL (8.8-10.2); CHLORIDE 104 mmol/L (98-107); COSMO 276; CREATININE 0.5 mg/dL (0.5-0.9); ESTIMATED GFR > 60; GLUCOSE 106 mg/dL (70-104); POTASSIUM 4.3 mmol/L (3.5-5.1); SODIUM 139 mmol/L (136-145); TCO2 22 mmol/L (25-35)
[2018-12-28] MEDS: ZOLOFT PO SCH (09:19)
[2018-12-28] MEDS: VICON-C PO SCH (09:19)
[2018-12-28] MEDS: LOFIBRA PO SCH (09:19)
[2018-12-28] MEDS: PRINIVIL PO SCH (09:19)
[2018-12-28] MEDS: NORVASC PO SCH (09:19)
[2018-12-28] MEDS: TYLENOL PO PRN (14:36)
[2018-12-28] MEDS: LIPITOR PO SCH (20:31)
[2018-12-29] MEDS: MAXIPIME 1 GM in NS 50 ML IV SCH ×2 (04:06→16:12)
[2018-12-29] MEDS: ZOLOFT PO SCH (09:48)
[2018-12-29] MEDS: NORVASC PO SCH (09:48)
[2018-12-29] MEDS: PRINIVIL PO SCH (09:48)
[2018-12-29] MEDS: LOFIBRA PO SCH (09:48)
[2018-12-29] MEDS: VICON-C PO SCH (09:48)
[2018-12-29] MEDS: TYLENOL PO PRN (16:12)
--- NOTE | 2018-12-29 16:24 | PROGRESS NOTE ---
DATE: 12/29/2018 SUBJECTIVE: The patient has no major complaints. OBJECTIVE: Blood pressure is 131/53, heart rate of 74, respiratory rate of 18, temperature 97.9 degrees, 93% on room air.Cardiovascular: Regular rate and rhythm. Pulmonary: Bilateral breath sounds clear to auscultation. GI: Soft, nontender, nondistended. Bowel sounds are positive. LABORATORY DATA: I do not have any new data today. PROBLEM LIST: 1. Encephalopathy, subdural hematoma. She seems to be doing okay. 2. Left upper lobe pneumonia. She is on cefepime. I think we can probably discharge her on Omnicef for another 7 days. 3. Hyponatremia. That actually got better yesterday so we are just kind of watching. DISPOSITION: Anticipate discharge tomorrow to rehab once things have stabilized. cc: Vasiliy Cotton MD
[2018-12-29] MEDS: LIPITOR PO SCH (20:02)
[2018-12-30] MEDS: MAXIPIME 1 GM in NS 50 ML IV SCH ×2 (04:32→18:16)
[2018-12-30] MEDS: VICON-C PO SCH (09:15)
[2018-12-30] MEDS: LOFIBRA PO SCH (09:15)
[2018-12-30] MEDS: ZOLOFT PO SCH (09:15)
[2018-12-30] MEDS: PRINIVIL PO SCH (09:15)
[2018-12-30] MEDS: NORVASC PO SCH (09:15)
[2018-12-30 13:17] VITALS: BP 126/57
--- NOTE | 2018-12-30 16:13 | DISCHARGE SUMMARY ---
ADMISSION DATE: 12/23/2018 DISCHARGE DATE: 12/30/2018 DIAGNOSES: 1. Fall and weakness. 2. Possible sepsis. 3. Hypertension. 4. Hyperlipidemia. 5. Reported history of chronic obstructive pulmonary disease. 6. History of vertigo. 7. Subacute subdural hematoma. DISCHARGE DIAGNOSES: 1. Encephalopathy, subdural hematoma, stable. 2. Left upper lobe bronchopneumonia. 3. Hyponatremia. 4. History of vertigo. 5. Hypertension. DIAGNOSTICS: 1. 12/23/2018 chest x-ray revealed increased interstitial markings, believed to be mild pulmonary edema. 2. 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 No evidence of acute disease in the cervical spine. 3. Brain MRI revealed stable subacute to chronic right subdural hematoma. 4. CT of the thorax, abdomen and pelvis revealed interstitial edema versus fibrosis. The possibility of mild left upper lobe bronchopneumonia cannot be excluded. Diverticulosis coli with mild constipation. CONSULTATIONS: Dr. Dana Jorge. MICROBIOLOGY: 1. Blood cultures x2 revealed no growth after five days. 2. Influenza screen revealed negative for flu A and B. 3. Urine culture revealed no growth. HOSPITAL COURSE: Ms Aguilar presented to the emergency room with altered mental status. She had a history of a recent fall in November 2018 with a subsequent right-sided subdural hematoma. She was managed nonsurgically at [facility]. According to the chart, she had difficulty with her balance and slurred speech, sometimes drooling after the subdural hematoma. She did have a couple of falls after discharge from [place], being seen in the emergency department in early December with stable imaging. Therefore, she was discharged from the emergency room. She was brought to the hospital again on the due to being unable to get up off the floor after falling. Head CT and MRI of the brain ruled out acute stroke. They did demonstrate stable subacute to chronic right subdural hematoma. She was found to have pneumonia for which she was treated with cefepime and will be discharged on Omnicef for seven days. She was hyponatremic, sodium has stabilized. Thankfully, she is improved and is ready for discharge to rehab. DISCHARGE VITAL SIGNS: Blood pressure is 126/57 with heart rate of 73, respirations are 14 to 16, temperature 98.8 degrees oral, with room air saturations 98 to 99 percent. DISCHARGE PHYSICAL EXAMINATION: General: This is an 83-year-old female who is sitting up in the bed in no distress. Eyes: Pupils are equal, round, react to light. No nystagmus. EOMs are intact. Sclerae anicteric. Cardiovascular: Regular rate and rhythm. S1 and S2 are appreciated. She has no lower extremity edema. Calves are nontender bilateral with peripheral pulses palpable x4 extremities. Pulmonary: Breath sounds are clear with no increased work of breathing noted. Chest rises and falls symmetric with respiration. Chest wall is nontender to palpation. Gastrointestinal: Abdomen is soft, nontender, nondistended with bowel sounds in all four quadrants. Neurologic: She is alert. She is oriented to person, place, and day. She moves all extremities at random. DISCHARGE MEDICATIONS: 1. Ostera tablet one p.o. daily. 2. Omnicef 300 mg p.o. b.i.d. x7 days. 3. Adrenoid capsule one p.o. daily. 4. Zoloft 50 mg p.o. daily. 5. Lisinopril 20 mg p.o. daily. 6. Folic acid with vitamin B complex and C 400 mcg p.o. daily. 7. Fenofibrate 160 mg p.o. daily. 8. Lipitor 40 mg p.o. at bedtime. 9. Norvasc 10 mg p.o. daily. DISPOSITION: She is being discharged and transferred to [facility] Re[facility] in stable condition. TIME SPENT: This is a greater than 30 minute discharge. Dictated by RUPALI Fischer for Vasiliy Cotton MD cc: RUPALI Fischer MD
[2018-12-30] MEDS ORDERED: FLU VACCINE IM ONE (17:10)
== END 2018-12-30 19:43 | DRG 871 ==
LOC: SUPCPDRO → ED 10:51 → SUATTDRO 10:52 → 3N 10:52
PROVIDERS: ATTEND Internal Medicine